=== PATIENT | female | born 1965 | race Hispanic/Latino ===

== ENCOUNTER 2018-06-18 12:54 | Emergency (ER) | payer OTHER, SELFPAY ==
[2018-06-18] MEDS ORDERED: Dexamethasone 10 MG/ML VIAL ONE (13:35)
[2018-06-18] MEDS ORDERED: Ketorolac Tromethamine 30 MG/ML VIAL ONE (13:35)
[2018-06-18 13:38] LABS: #Lymphocytes 1.4 thou/uL (1.20-3.40); #Monocytes 0.5 thou/uL (0.11-0.59); #Neutrophils 7.6 thou/uL (1.40-6.50); %Basophils 0.1 % (0.0-1.0); %Eosinophils 0.2 % (0.0-10.0); %Monocytes 5.3 % (0.0-10.0); %Neutrophils 79.4 % (42.0-75.0); Mean Corpuscular Hemoglobin 31.3 pg (27.0-31.0); Mean Corpuscular Volume 92.2 fL (78.0-98.0); Mean Platelet Volume 7.4 fL (7.4-10.4); Platelet Count 243 thou/uL (130-400); RBC Distribution Width 11.6 % (11.5-14.5); Red Blood Cell (RBC) Count 4.47 mill/uL (4.20-5.40); White Blood Cell (WBC) Count 9.5 thou/uL (4.8-10.8)
[2018-06-18 13:43] LABS: BHCG - Serum Negative (NEGATIVE); Pregs Control Background? CLEAR/WHITE (CLR/WHITE); Pregs Control Bar Appear? YES (CONTROL BAR)
[2018-06-18 14:03] LABS: Anion Gap 12 mmol/L (10-20); BUN (Urea Nitrogen) 10 mg/dL (9.8-20.1); Calc. Creatinine Clearance 0 mL/min (70-130); Calcium 9.2 mg/dL (7.8-10.44); Carbon Dioxide 23 mmol/L (22-29); Chloride 107 mmol/L (98-107); Estimated GFR-MDRD 80; Glucose 103 mg/dL (70-105); Potassium 3.8 mmol/L (3.5-5.1); Sodium 138 mmol/L (136-145)
[2018-06-18] MEDS ORDERED: ISOVUE-370 76%-LOCM 1 ML ONE (14:20)
--- NOTE | 2018-06-18 14:38 | CT ---
CT NECK WITH IV CONTRAST: Date: 06/18/18 HISTORY: Throat pain. FINDINGS: There is significant enlargement of the tonsils, left larger than the right. No abscess formation is apparent. Effacement of the left side of the posterior pharyngeal airway. No invasion of the deeper s tructures. Reactive appearing, slightly enlarged lymph nodes are present throughout the neck. Thyroid gland has a normal appearance. Bovine origin of the great vessels is apparent at the aortic arch on the inferiormost images. IMPRESSION: Marked enlargement left tonsils without abscess formation evident. Reactive appearing adenopathy braxton g each side of the neck. POS: [facility]
== END 2018-06-18 15:06 | disposition home or self-care (01) ==
LOC: ERS 12:54
DX: J03.90 Acute tonsillitis, unspecified (principal); I10 Essential (primary) hypertension
CPT/HCPCS: 36415; 70491; 80048; 84703; 85025; 96372; 96374; J1100; J1885